=== PATIENT | female | born 1970 | race Caucasian/White ===

== ENCOUNTER 2024-11-08 15:41 | Emergency (ER) | payer OTHER, SELFPAY ==
--- OUTSIDE RECORDS SUMMARY | 2024-11-08 15:44 | XMS_ITS | Continuity of Care Document ---
Author Organization [facility] Address [address] [facility] [address] [place] [address] Assessment No assessment recorded. Plan of Treatment Reminders Order Date Submit Date Provider Last Modified By Organization Details Last Modified Time Details Appointments None record ed. Lab None record ed. Referral None record ed. Procedures None record ed. Surgeries None record ed. Imaging None record ed. Medication Orders None record ed. Patient TargetsNo targets recorded. Patient InstructionsNo instructions recorded. Reason for Referral None Reported. Problems Name Problem SNOMED Code Status Onset Date Resolution Date Notes Provider Name and Address Organization Details Recorded Time Neck pain 30479703 Active 2024 [place] [address] [address], [place], [address], [facility] 18:34:36 Thoracic segmental dysfunction 631503656 Active 2024 [place] [address], [place], [address], [facility] 18:34:36 Lesion of lumbar spine 259117747 Active 2024 [place] [address], [facility] [place], [address], [facility] 18:34:36 Lumbar segmental dysfunction 544492771 Active 2024 [place] [address], [facility] [place], [address], [facility] 18:34:36 Cervical segmental dysfunction 315234816 Active 2024 [facility] Tysonharriett Khan [place] [address], [place], [address], [facility] 18:34:36 Somatic dysfunction of sacral spine 178384538 Active 2024 Grant Chaney [place] [address], [place], [address], [facility] 22:49:33 Low back pain 311090089 Active 2024 Garrick Nieves [place] [address], [place], [address], [facility] 17:22:53 Problem Notes None recorded. Procedures Surgical History Date Name Laterality Status Provider Name and Address Organization Details Recorded Time 53405: Spinal manipulation , 3 to 4 regions completed Garrick Nieves [place] [address], [place], [address], [facility] 11/04/2024 17:22:42 5 59945: Spinal manipulation , 3 to 4 regions completed Grant Chaney DC [address], [place], [address], [facility] 10/06/2024 22:49:06 5 50436: Spinal manipulation , 3 to 4 regions completed Babatunde Tysonharriett Khan DC [address], [place], [address], [facility] 09/05/2024 10:42:02 5 48704: Spinal manipulation , 3 to 4 regions completed Babatunde Living[place]harriett Khan [place] [address], [place], [address], [facility] 08/22/2024 18:34:45 Imaging Results None recorded. Procedure Notes None recorded. Medical Equipment None Reported. Medications Name Sig Start Date Stop Date Status Note LastModified by Organization Details LastModified Time bupropion HCl SR 150 mg tablet,12 hr sustained-relea se TAKE 3 TABLETS BY MOUTH EVERY MORNING active Not Available Not Available No t Available azithromycin 250 mg tablet TAKE 2 TABLETS BY MOUTH FOR 1 DAY THEN TAKE 1 TABLET BY MOUTH DAILY FOR 4 DAYS active Not Available Not Available No t Available spironolactone 25 mg tablet TAKE 8 TABLETS BY MOUTH ONCE DAILY IN THE AM active Not Available Not Available No t Available estradiol 0.0375 mg/24 hr weekly transdermal patch APPLY 1 PACH TO LOWER ABDOMIN WEEKLY FOR 28 DAYS active Not Available Not Available No t Available Vitals None Recorded Social History None recorded. Functional Status None recorded. Mental Status None recorded. Family History Nothing Reported. Medical History No medical history recorded. Gynecological HistoryNo gynecological history recorded. Obstetrics History GPAL:G 0 P 0 0 0 0 Past Encounters Encounter ID Performer Location Encounter Start Date Encounter Closed Date Diagnosis/Indication Diagnosis SNOMED-CT Code Diagnosis ICD10 Code Diagnosis Note [id number] Babatunde Khan DC [facility] [address] [place] [address] 09/03/2024 16:01:54 09/05/2024 23:25:57 Lesion of lumbar spine 234700334 M99.01 Neck pain 74273575 M54.2 Thoracic s egmental dysfunction 039170620 M99.02 Lumbar seg mental dysfunction 348833407 M99.03 Cervical s egmental dysfunction 262646011 M99.01 [id number] Grant Chaney DC [facility] [address] [place] [address] 10/03/2024 15:28:40 10/11/2024 11:11:37 Cervical segmental dysfunction 988374273 M99.01 Thoracic s egmental dysfunction 338975965 M99.02 Neck pain 22300260 M54.2 Somatic dy sfunction of sacral spine 151900205 M99.04 Health Concerns Section Related Observation LastModified by Organization Detai ls LastModified Time None Recorded Concern Status LastModified by Organization Details LastModified Time None Recorded Payers Encounter Date Sequence Insurance Name Policy Number Policy Cruz Covered Member ID Cruz Member ID Guarantor Name 10/03/2024 1 [facility] [place] [id number] [place] Notes Date Note Type Note Provider Name and Address Organization Details Recorded Time 10/03/2024 text/html HPI - Cervical SpineReported bypatient.Location: left Quality:aching Severity:moderate Duration:2 weeks Timing:gradual Alleviating Factors:ice Aggravating Factors:sitting Associated Symptoms:no numbness/tingling Grant Chaney DC [address], [place], [address], [facility] 10/06/2024 22:49:47 OBGyn Episode No OBEpisode recorded.
--- OUTSIDE RECORDS SUMMARY | 2024-11-08 15:44 | XMS_ITS | Data Portability ---
Author Organization [place] [facility], [employer] [facility] Address [address] [facility] [address] [place] [address] Assessment Encounter Date Assessment Date Assessment LastModified by Organization Details LastModified Time 08/22/2024 08/22/2024 ASSESSMENT: Patient is a good candidate for conservative care and the prognosis is for a favorable outcome that achieves the patients' goals. We discussed etiology, activity modifications, home care, and other treatment options. Initially, it is recommended that the patient receive in-office treatment 1 times per week for 8 weeks at which time a re-evaluation will be performed to determine an appropriate change in plan. Initially, treatment will focus on joint manipulation to restore range of motion and reduce pain. We will slowly progress to therapeutic exercises and activities to improve function, strength, and stability may also be used as warranted. If the patient is not responding as expected, more invasive procedures will be discussed along with a referral. All considerations above were discussed with the patient and questions answered to satisfaction. If the patient should have any additional questions, or should the condition evolve or worsen, the patient should not hesitate to contact our office. Not available 08/22/2024 18:34:35 09/03/2024 09/03/2024 ASSESSMENT: Patient is a good candidate for conservative care and the prognosis is for a favorable outcome that achieves the patients' goals. We discussed etiology, activity modifications, home care, and other treatment options. Initially, it is recommended that the patient receive in-office treatment 1 times per week for 8 weeks at which time a re-evaluation will be performed to determine an appropriate change in plan. Initially, treatment will focus on joint manipulation to restore range of motion and reduce pain. We will slowly progress to therapeutic exercises and activities to improve function, strength, and stability may also be used as warranted. If the patient is not responding as expected, more invasive procedures will be discussed along with a referral. All considerations above were discussed with the patient and questions answered to satisfaction. If the patient should have any additional questions, or should the condition evolve or worsen, the patient should not hesitate to contact our office. Not available 09/05/2024 10:42:02 11/04/2024 11/04/2024 ASSESSMENT: Patient is a good candidate for conservative care and the prognosis is for a favorable outcome that achieves the patients' goals. We discussed etiology, activity modifications, home care, and other treatment options. Initially, it is recommended that the patient receive in-office treatment 1 times per week for 8 weeks at which time a re-evaluation will be performed to determine an appropriate change in plan. Initially, treatment will focus on joint manipulation to restore range of motion and reduce pain. We will slowly progress to therapeutic exercises and activities to improve function, strength, and stability may also be used as warranted. If the patient is not responding as expected, more invasive procedures will be discussed along with a referral. All considerations above were discussed with the patient and questions answered to satisfaction. If the patient should have any additional questions, or should the condition evolve or worsen, the patient should not hesitate to contact our office. ecram Not available 11/04/2024 17:22:52 Plan of Treatment Reminders Order Date Submit [...] Address Organization Details Recorded Time Neck pain 26685683 Active 2024 [facility] [place] [address], [place], [address], [facility] 18:34:36 Thoracic segmental dysfunction 452543981 Active 2024 Babatunde [place] [address], [place], [address], [facility] 18:34:36 Lesion of lumbar spine 671402204 Active 2024 Babatunde Khan [place] [address], [place], [address], [facility] 18:34:36 Lumbar segmental dysfunction 233558784 Active 2024 Babatunde Khan DC [address], [place], [address], [facility] 18:34:36 Cervical segmental dysfunction 282226954 Active 2024 Babatunde Khan DC [address], [place], [address], [facility] 18:34:36 Somatic dysfunction of sacral spine 706854006 Active 2024 Grant Chaney DC [address], [place], [address], [facility] 22:49:33 Low back pain 411999891 Active 2024 Garrick Nieves DC [address], [place], [address], [facility] 17:22:53 Problem Notes None recorded. Procedures Surgical History Date Name Laterality Status Provider Name and Address Organization Details Recorded Time 66314: Spinal manipulation , 3 to 4 regions completed Garrick Nieves DC [address], [place], [address], [facility] 11/04/2024 17:22:42 5 10207: Spinal manipulation , 3 to 4 regions completed Grant Chaney DC [address], [place], [address], [facility] 10/06/2024 22:49:06 5 37413: Spinal manipulation , 3 to 4 regions completed Babatunde Khan DC [address], [place], [address], [facility] 09/05/2024 10:42:02 24500: Spinal manipulation , 3 to 4 regions completed Babatunde Khan DC [address], [place], [address], [facility] 08/22/2024 18:34:45 Imaging Results None recorded. Procedure [...] SNOMED-CT Code Diagnosis ICD10 Code Diagnosis Note [id number] Babatunde Khan DC [facility] [address] [place] [address] 08/22/2024 17:02:32 08/22/2024 18:39:16 Lesion of lumbar spine 968093722 M99.01 Neck pain 77244790 M54.2 Thoracic s egmental dysfunction 180606003 M99.02 Lumbar seg mental dysfunction 812801178 M99.03 Cervical s egmental dysfunction 575065232 M99.01 [id number] Babatunde Khan DC [facility] [address] [place] [address] 09/03/2024 16:01:54 09/05/2024 23:25:57 Lesion of lumbar spine 218283425 M99.01 Neck pain 55367225 M54.2 Thoracic s egmental dysfunction 631200211 M99.02 Lumbar seg mental dysfunction 940464788 M99.03 Cervical s egmental dysfunction 407367913 M99.01 [id number] Grant Chaney DC [facility] [address] [place] [address] 10/03/2024 15:28:40 10/11/2024 11:11:37 Cervical segmental dysfunction 181763358 M99.01 Thoracic s egmental dysfunction 732837657 M99.02 Neck pain 05792864 M54.2 Somatic dy sfunction of sacral spine 423916068 M99.04 [id number] Garrick Nieves DC [facility] [address] [place] [address] 11/04/2024 17:03:07 11/04/2024 18:02:42 Cervical segmental dysfunction 120938568 M99.01 Thoracic s egmental dysfunction 167835678 M99.02 Neck pain 34972346 M54.2 Somatic dy sfunction of sacral spine 807161520 M99.04 Lumbar seg mental dysfunction 286756665 M99.03 Low back pain 901330272 M54.50 Health Concerns Section Related Observation LastModified by Organization Detai ls LastModified Time None Recorded Concern Status LastModified by Organization Details LastModified Time None Recorded Advance Directives Directive None Recorded Payers Encounter Date Sequence Insurance Name Policy Number Policy Cruz Covered Member ID Cruz Member ID Guarantor Name 08/22/2024 1 [facility] [place] [id number] [place] 09/03/2024 1 [facility] [place] [id number] [place] 10/03/2024 1 [facility] [place] [id number] Heather [place] 11/04/2024 1 [facility] [id number] Heather Hill Notes Date Note Type Note Provider Name and Address Organization Details Recorded Time 08/22/2024 text/html HPI - Cervical SpineReported bypatient.Location: left Quality:aching Severity:moderate Duration:2 weeks Timing:gradual Alleviating Factors:ice Aggravating Factors:sitting Associated Symptoms:no numbness/tingling Babatunde Khan, ALISHA [address], [place], [address], [facility] 08/22/2024 18:36:37 09/03/2024 text/html HPI - Cervical SpineReported bypatient.Location: left Quality:aching Severity:moderate Duration:2 weeks Timing:gradual Alleviating Factors:ice Aggravating Factors:sitting Associated Symptoms:no numbness/tingling Babatunde Khan, ALISHA [address], [place], [address], [facility] 09/05/2024 10:42:32 10/03/2024 text/html HPI - Cervical SpineReported bypatient.Location: left Quality:aching Severity:moderate Duration:2 weeks Timing:gradual Alleviating Factors:ice Aggravating Factors:sitting Associated Symptoms:no numbness/tingling Grant Chaney, ALISHA [address], [place], [address], [facility] 10/06/2024 22:49:47 11/04/2024 text/html HPI - Cervical SpineReported bypatient.Location: left Quality:aching Severity:moderate Duration:2 weeks Timing:gradual Alleviating Factors:ice Aggravating Factors:sitting Associated Symptoms:no numbness/tinglingHP I - Lumbar SpineReported bypatient.Location: left; With radiation to knee Quality:aching Severity:not changing Timing:morning Aggravating Factors:standing Alleviating Factors:ice Garrick Nieves, ALISHA [address], [place], [address], [facility] 11/04/2024 17:49:11 OBGyn Episode No OBEpisode recorded.
--- OUTSIDE RECORDS SUMMARY | 2024-11-08 15:44 | XMS_ITS | Continuity of Care Document ---
Author Organization [place] [facility] Address [address] [facility] [address] [place] [address] Assessment Encounter Date Assessment Date Assessment LastModified by Organization Details LastModified Time 11/04/2024 11/04/2024 ASSESSMENT: Patient is a good [...] Address Organization Details Recorded Time Neck pain 34536571 Active 2024 Babatunde Khan [place] [address] [facility], [place], [address], [place] [facility] 18:34:36 Thoracic segmental dysfunction 722385518 Active 2024 Babatunde Khan [place] [address] [facility], [place], [address], [place] [facility] 18:34:36 Lesion of lumbar spine 412659629 Active 2024 Babatunde Khan [place] [address] [facility], [place], [address], [facility] 18:34:36 Lumbar segmental dysfunction 382564754 Active 2024 Babatunde Khan [place] [address] [facility], [place], [address], [facility] 18:34:36 Cervical segmental dysfunction 576067701 Active 2024 Babatunde Khan [place] [address] [facility], [place], [address], [facility] 18:34:36 Somatic dysfunction of sacral spine 221245443 Active 2024 Grant Chaney [place] [address] [facility], [place], [address], [facility] 22:49:33 Low back pain 005420842 Active 2024 Garrick Nieves [place] [address] [facility], [place], [address], [facility] 17:22:53 Problem Notes None recorded. Procedures Surgical History Date Name Laterality Status Provider Name and Address Organization Details Recorded Time 84270: Spinal manipulation , 3 to 4 regions completed Garrick Nieves DC [address] [facility], [place], [address], [facility] 11/04/2024 17:22:42 55741: Spinal manipulation , 3 to 4 regions completed Grant Chaney DC [address] [place] [address], [place], [address], [facility] 10/06/2024 22:49:06 5 86711: Spinal manipulation , 3 to 4 regions completed Babatunde Khan [place] [address] [facility], [place], [address], [facility] 09/05/2024 10:42:02 5 11689: Spinal manipulation , 3 to 4 regions completed Babatunde Khan [place] [address] [facility], [place], [address], [facility] 08/22/2024 18:34:45 Imaging Results None recorded. Procedure [...] SNOMED-CT Code Diagnosis ICD10 Code Diagnosis Note [id number] Garrick Nieves DC [facility] [address] [facility] [facility] [place] [address] 11/04/2024 17:03:07 11/04/2024 18:02:42 Cervical segmental dysfunction 636712592 M99.01 Thoracic s egmental dysfunction 191376753 M99.02 Neck pain 84694125 M54.2 Somatic dy sfunction of sacral spine 028381963 M99.04 Lumbar seg mental dysfunction 585339880 M99.03 Low back pain 560770297 M54.50 Health Concerns Section Related Observation LastModified by Organization Detai ls LastModified Time None Recorded Concern Status LastModified by Organization Details LastModified Time None Recorded Payers Encounter Date Sequence Insurance Name Policy Number Policy Cruz Covered Member ID Cruz Member ID Guarantor Name 11/04/2024 1 [facility] [place] [id number] [place] Notes Date Note Type Note Provider Name and Address Organization Details Recorded Time 11/04/2024 text/html HPI - Cervical SpineReported bypatient.Location: left Quality:aching Severity:moderate Duration:2 weeks Timing:gradual Alleviating Factors:ice Aggravating Factors:sitting Associated Symptoms:no numbness/tinglingHP I - Lumbar SpineReported bypatient.Location: left; With radiation to knee Quality:aching Severity:not changing Timing:morning Aggravating Factors:standing Alleviating Factors:ice Garrick Nieves [place] [address] [facility], [place], [address], [facility] 11/04/2024 17:49:11 OBGyn Episode No OBEpisode recorded.
--- OUTSIDE RECORDS SUMMARY | 2024-11-08 15:44 | XMS_ITS | Clinical Summary ---
Author Organization [facility] Address [address] [place] [address] Care Team Providers Care Search Engine Marketing Manager Name Role Phone Paulette Mcdonough DO Unavailable [phone] Iain Zamora MD Unavailable [phone] Flower Yepez DO Primary Care Provider [phone] Allergies Active Allergy Reactions Criticality Noted Date Comments Cats (Fur, Dander, Saliva) Ciprofloxacin Hives 02/25/2009 Canine Protein Containing Products House Dust Butoconazole Edema Gluten Mental Status Change 06/04/2020 Mold Other - Describe In Comment Field 05/11/2020 Body aches, congestion [place] Ragweed Medications CLARITIN-D 12 HOUR tablet TAKE ONE TABLET BY MOUTH TWICE DAILY 180 tablet 1 02/29/20 11 Active Additional Information Patient taking differently:1 tablet. OralQ AM, Reported on 01/05/2023 medication order composerIndica tions:Menopaus al state Progestrone 300 mg and Estrogen 0.5 mg daily 0 12/20/19 14 Active vitamin E acetate, bulk, 740 unit/gram powd 2 tablets. by Not Applicable route. Active estradiol 0.0375 mg/24 hr (CLIMARA) 0.0375 mg/24 hr patch APPLY 1 PATCH TO LOWER ABDOMEN WEEKLY 02/04/20 23 Active Thyroid, Pork, Bulk, 100 % MCFP powdIndication s:Hypothyroidi sm (acquired) As directed 115 mcg. 0 06/01/20 23 Active traZODone 300 mg tabletIndicati ons:Major depressive disorder with single episode, in partial remission Take 1 Tablet (300 mg) by mouth at bedtime. 90 Tablet 1 07/24/19 25 Active hydrOXYzine HCL (ATARAX) 25 mg tabletIndicati ons:Anxiety Take 1 Tablet (25 mg) by mouth every 6 hours if needed for Anxiety. 25 Tablet 08/02/19 25 Active torsemide (DEMADEX) 20 mg tabletIndicati ons:Localized edema TAKE 1 TABLET(20 MG) BY MOUTH EVERY DAY NEEDED FOR SWELLING 90 Tablet 09/17/19 25 Active acyclovir 400 mg tabletIndicati ons:Genital herpes simplex, unspecified site TAKE 1 TABLET(400 MG) BY MOUTH TWICE DAILY 180 Tablet 2 09/27/19 25 Active fluconazole 150 mg tabletIndicati ons:Antibiotic -induced yeast infection Take 1 Tablet (150 mg) by mouth every 72 hours. 2 Tablet 10/01/19 25 Active buPROPion 150 mg Sustained-Rele ase tabletIndicati ons:Major depressive disorder with single episode, in partial remission Take 3 Tablets (450 mg) by mouth once daily in the morning. TAKE 3 TABLETS BY MOUTH DAILY 270 Tablet 3 10/12/19 25 Active cromolyn 100 mg/5 mL oral solutionIndica tions:Mast cell activation (HC) Take 5 mL (100 mg) by mouth four times daily before meals and at bedtime. 600 mL 2 10/12/19 25 025 Active cyanocobalamin 1,000 mcg/mL injectionIndic ations:B12 deficiency ADMINISTER 1 ML(1000 MCG) UNDER THE SKIN 1 TIME FOR 1 DOSE 1 mL 10/15/19 25 Active spironolactone 25 mg tabletIndicati ons:Polycystic ovaries,Hair loss Take 8 tablets by mouth and divide doses through day 720 Tablet 1 10/26/19 25 Active buPROPion (WELLBUTRIN SR) 150 mg Sustained-Rele ase tabletIndicati ons:Major depressive disorder with single episode, in partial remission Take 3 Tablets (450 mg) by mouth every morning. TAKE 2 AND 1/2 TABLETS BY MOUTH DAILY 270 Tablet 3 10/24/19 24 025 Discontinued(R eorder (E-cancel not sent)) cyanocobalamin (VITAMIN B12) 1,000 mcg/mL injection 11/09/19 24 025 Discontinued spironolactone (ALDACTONE) 25 mg tabletIndicati ons:Polycystic ovaries,Hair loss Take 8 tablets by mouth and divide doses through day 540 Tablet 3 04/09/20 24 025 Discontinued Active Problems Problem Noted Date Diagnosed Date Cervical cancer screening 10/30/2024 Overview (10/30/2024): 10/2024 NIL/HPV negative Plan: HPV-based testing due 10/2029 Deviated septum 09/06/2021 Posttraumatic stress disorder 08/12/2020 Surgical menopause 07/02/2019 Hormone replacement therapy (HRT) 05/18/2019 Lyme disease 02/26/2018 Overview (02/26/2018): Dx: 2012 by SILVIA Rogers CFS (chronic fatigue syndrome) 02/26/2018 Overview (02/26/2018): Dx: 2012 by SILVIA Rogers B12 deficiency 11/29/2017 Vitamin D deficiency 07/19/2017 PMS (premenstrual syndrome) 07/19/2017 Polycystic ovaries 07/19/2017 Hypothyroidism (acquired) 12/22/2016 Basal cell carcinoma 09/04/2015 Overview (09/04/2015): 08/31/15 - back - clean margins Hx of bilateral oophorectomy 08/06/2015 Fibromyalgia 03/11/2014 Raynaud's syndrome 10/26/2011 Hypercalcemia 12/23/2009 Overview (12/23/2009): Possibly due to over supplementation Endometriosis, site unspecified 12/14/2009 Episode of recurrent major depressive disorder 0 01/07/2009 Genital herpes, unspecified 06/27/2007 Other acne Edema Irritable bowel syndrome ONYCHOMYCOSIS INSOMNIA Encounters Date Type Department Care Team Description 11/08/2024 Nurse Triage [facility] [address] [facility] [place] [address] Flower Yepez DO Pain 10/25/2024 Telephone [facility] [address] [facility] [place] [address] Flower Yepez DO Prior Authorization (buPROPion 150 mg Sustained-Release tablet Approved 09/25/2024-10/25/2025) 10/23/2024 Refill [facility] [address] [facility] [place] [address] Flower Yepez DO Refill Request (Bupropion, Spironolactone) 10/11/2024 12:50 PM CDT Office Visit [facility] [address] [place] [address] Flower Yepez DO Physical (54 year old - due for pap ) 10/11/2024 Refill [facility] [address] [place] [address] Flower Yepez DO Refill Request (Cyanocobalamin) 10/11/2024 Travel 10/07/2024 Travel 10/04/2024 10:15 AM CDT Orders Only [facility] [address] [place] [address] Lab 10/04/2024 Travel 10/01/2024 Travel 09/29/2024 12:35 PM CDT Telemedicine [facility] [address] [place] [phone] Scotty Lovelace MD Sinus Infection 09/29/2024 Nurse Triage [facility] [address] [place] [address] Flower Yepez DO Sinus Problem 09/24/2024 Refill [facility] [address] [place] [address] Flower Yepez DO Refill Request (Acyclovir) 09/16/2024 Telephone [facility] [address] [place] [address] Flower Yepez DO Questions (Patient has question. Is requesting to speak with provider or nurse. ) 09/13/2024 Refill [facility] [address] [place] [address] Flower Yepez DO Refill Request (Torsemide) 08/22/2024 3:00 PM HANDICAPPER HARNESS RACING Orders Only [facility] [address] [place] [address] Lab, [facility] 08/22/2024 Travel from Last 3 Months Immunizations Immunization Administration Dates Next Due AMB Influenza, IIV3 (Age >=3 years) Preserve Free (Flu Clinic Only) 05/28/2008 AMB Influenza, IIV3 (Age >=3 years)(Flu Clinic Only) 05/28/2008 AMB Influenza, IIV4 PF (=>6 mos Flulaval,Fluzone Fluarix)(Flu Clinic Only) 05/14/2014 COVID-19 vaccine ([facility] NTC9 Media 30mcg/0.3mL) PF, MDV 03/04/2021,02/05/2021 INFLUENZA, IIV3 PF (AGE >= 6 MO) 04/13/2011 Influenza A (H1N1), Inactiva fco (Age >=3 Years) 07/01/2009 Influenza, IIV3 (Age >=3 years) 05/02/2012,04/13,05/11/2007 Td (Age >=7 Years) 02/24/2023,08/19/2003, 004 Tdap 05/02/2012 Zoster (Shingrix-RZV, recombinant) 02/24/2023, Family History Medical History Relation Name Comments Alcohol/Drug Brother 3 alcoholic Heart Disease Brother 4 AVM in brain-s anabel brother Arthritis Father Osteoarthrits Hyperlipidemia Father b 1938 Psychiatric illness Father depressi on Arthritis Mother RA - ankylosing spondilitis Dementia Mother Diabetes Mother b 1938 Heart Disease Mother [place] at 70 yo Hypertension Mother Other Mother diverticulitis Stroke Mother x2 minor Cancer-breast Other Paternal Cousin x2 Osteoporosis Paternal Grandmother Other Sister 2 diverticulitis Cancer-ovarian No Family History Relation Name Status Comments Brother 1 Alive Brother 2 Alive Brother 3 Brother 4 Father Alive Mother Alive Other Paternal Cousin Paternal Grandmother Sister 1 Alive Sister 2 Social History Tobacco Use Types Packs/Day Years Used Date Smoking Tobacco: Never Smokeless Tobacco: Never Tobacco Cessation:Counseling Given: Yes Alcohol Use Standard Drinks/Week Comments Not Currently 0.8 (1 standard drink = 0.6 oz p ure alcohol) PHQ-2 Answer Date Recorded PHQ-2 TOTAL SCORE 3 10/11/2024 Social Connections Answer Date Recorded Do you often feel lonely or isolated from those around you? 0 07/08/2024 Financial Resource Strain Answer Date R ecorded Difficulty of Paying Living Expenses 3 07/08/2024 Difficulty of Paying Living Expenses Not on file 07/08/2024 Food Insecurity Answer Date Recorded Do you worry your food will run out before you are able to buy more? 1 07/08/2024 Transportation Needs Answer Date Record ed Does lack of transportation keep you from medica l appointments? 1 07/08/2024 Does lack of transportation keep you from work, meetings or getting things that you need? 1 07/08/2024 Housing Stability Answer Date Recorded What is your housing situation today? 1 07/08/2024 Utilities Answer Date Recorded Do you have trouble paying f or utilities (for example, heat, electricity, water, phone)? 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 Not on file Not on file Obstetrics History Para Term AB IAB SAB Ectopic Multiple Livin g Live Births 3 2 2 0 1 0 1 0 0 2 Date Outcome GA Total Labor Labor/2nd/3rd Weight Sex Type Anes PTL Kaylynn A1 A5 Name Clin SAB Term Term Comments hx infertility Last Filed Vital Signs Vital Sign Reading Time Taken Comments Blood Pressure 118/81 10/11/2024 1:13 PM CDT Pulse 66 10/11/2024 1:13 PM CDT Temperature 35.9 C (96.6 F) 06/04/2020 3:57 PM HANDICAPPER HARNESS [employer]ACING Respiratory Rate 16 01/05/2023 3:55 PM CDT Oxygen Saturation 100% 10/11/2024 1:13 PM CDT Inhaled Oxygen Concentration - - Weight 58 kg (127 lb 12.8 oz) 10/11/2024 1:13 PM CDT Height 166.6 cm (5' 5.59) 10/11/2024 1:13 PM CD T Body Mass Index 20.89 10/11/2024 1:13 PM CDT Plan of Treatment Upcoming Encounters Date Type Department Care Team (Late st Contact Info) Description 11/26/2024 11:40 AM CDT Ancillary Procedure [facility] [address] [place] [address] Health Maintenance Due Date Last Done Comments Fecal testing sDNA-FIT ([place] guard) for age 45-75 2015 Pneumococcal series for age 50+ (1 of 1 - PCV) 2020 COVID-19 vaccine series (3 - Pfizer risk series) 04/01/2021 03/04/2021, 02/05/2021 Mammogram for age 45-75 11/06/2024 11/07/19, 10/24/2023, 11/26/2021, Additional history exists Influenza Vaccine (Season Ended) 2025 05/14/2014, 05/02/2012, 04/13/2011, Additional history exists BMI (ht and wt on same day) for age 18+ 10/11/2025 10/11/2024, 02/24/2023, 02/23/2022, Additional history exists Depression screening for age 12+ 10/11/2025 10/11/2024, 10/11/2024, 11/01/2023, Additional history exists Lipids for age 45-75 10/11/2029 10/11/2024, 02/24/2023, 04/04/2022, Additional history exists Pap test for age 21-65 10/11/2029 , 10/11/2024, 02/09/2021, Additional history exists Tetanus booster 02/24/2033 02/24/2023, 04/04, 08/19/2003, Additional history exists Tdap Completed 05/02/2012 HIV for age 15-65 Completed 03/11/2014 Hepatitis C screening for ag e 18-79 Completed 03/11/2014 Zoster (shingles) series for age 50+ Completed 02/24/2023, 11/26/2021 Procedures Procedure Name Priority Date/Time Associated Diagnosis Comments BASIC METABOLIC PANEL Routine 10/11/2024 2:24 PM CDT Annual physical exam LIPID PANEL W REFLEX MEASURED LDL Routine 10/11/2024 2:24 PM CDT Annual physical exam MERCERIZING RANGE CONTROLLER THIN PREP PAP SCREEN IMAGED Routine 10/11/2024 2:04 PM CDT Pap smear for cervical cancer screening HPV HIGH RISK Routine 10/11/2024 2:04 PM CDT Pap smear for cervical cancer screening BASIC METABOLIC PANEL Routine 08/22/2024 3:14 PM HANDICAPPER HARNESS RACING Medication management TSH WITH REFLEX Routine 08/22/2024 3:14 PM HANDICAPPER HARNESS RACING Hypothyroidism (acquired) XR MAMMO ANN UNI ADDL VIEWS LEFT ELSA 11/07/2023 2:24 PM CDT Abnormal mammogram ANTI HIV 1/2 Routine 03/11/2014 2:32 PM CDT Fibromyalgia ANTI HCV Routine 03/11/2014 2:32 PM CDT Fibromyalgia from Last 3 Months or Most Recently Relevant to Health Maintenance Results * (ABNORMAL) LIPID PANEL W REFLEX MEASURED LDL (10/11/2024 2:24 PM CDT) CHOLESTEROL, TOTAL 205(H) <200 mg/dL [facility] HDL CHOLESTEROL 55 > OR = 50 mg/dL [facility] TRIGLYCERIDES 110 <150 mg/dL [facility] LDL-CHOLESTEROL 128(H) mg/dL (calc) [facility] Comment: Reference range: <100 Desirable range <100 mg/dL for primary prevention; <70 mg/dL for patients with CHD or diabetic patients with > or = 2 CHD risk factors. LDL-C is now calculated using the Salma calculation, which is a validated novel method providing better accuracy than the Friedewald equation in the estimation of LDL-C. Hipolito GRIDER et al. MIKIE. 2013;310(19): 1494-0681 (http://education.[employer].Soma/faq/LZK304) CHOL/HDLC RATIO 3.7 <5.0 (calc) [facility] NON HDL CHOLESTEROL 150(H) <130 mg/dL (calc) [facility] Comment: For patients with diabetes plus 1 major ASCVD risk factor, treating to a non-HDL-C goal of <100 mg/dL (LDL-C of <70 mg/dL) is considered a therapeutic option. Blood BLOOD SPECIMEN / Unknown 10/11/2024 2:24 PM CDT 10/11/2024 2:24 PM CDT us Flower Joséronak DO CHEMISTRY Final Result [facility] [address] [place] [address], [facility] [address] [place] [address] * (ABNORMAL) BASIC METABOLIC PANEL (10/11/2024 2:24 PM CDT) Only the most recent of2 resultswithin the time period is included. [facility] GLUCOSE 91 65 - 99 mg/dL [facility] Comment: Fasting reference interval UREA NITROGEN (BUN) 13 7 - 25 mg/dL [facility] CREATININE 1.04(H) 0.50 - 1.03 mg/dL [facility] EGFR 64 > OR = 60 mL/min/1.7 3m2 [facility] BUN/CREATININE RATIO 13 6 - 22 (calc) [facility] SODIUM 136 135 - 146 mmol/L [facility] POTASSIUM 3.6 3.5 - 5.3 mmol/L [facility] CHLORIDE 96(L) 98 - 110 mmol/L [facility] CARBON DIOXIDE 29 20 - 32 mmol/L [facility] ELECTROLYTE BALANCE 11 7 - 17 mmol/L (calc) [facility] CALCIUM 10.8(H) 8.6 - 10.4 mg/dL [facility] Blood BLOOD SPECIMEN / Unknown 10/11/2024 2:24 PM CDT 10/11/2024 2:24 PM CDT us Flower Yepez DO CHEMISTRY Final Result [facility] [address] [place] [address], [facility] [address] [place] [address] * MERCERIZING RANGE CONTROLLER THIN PREP PAP SCREEN IMAGED (10/11/2024 2:04 PM CDT) Case Report Gynecologic Cytology Report Case: [id number] Authorizing Provider: Flower Yepez DO Collected: 10/11/2024 1404 Ordering Location: [facility] Received: 10/11/2024 1404 Clinic First Screen: Maikel Gallego Rescreen: Judith Pittman Specimen: MERCERIZING RANGE CONTROLLER ThinPrep Vial Screening, Cervical 10/30/2024 1:27 PM CDT [facility] INTERPRETATION/ RESULT NEGATIVE FOR INTRAEPITHELIAL LESION OR MALIGNANCY (NIL) (none) 10/30/2024 1:27 PM CDT [facility] ENTRAL LABORATORY at 1327 CDT SPECIMEN ADEQUACY Satisfactory for evaluation No endocervical component seen 10/30/2024 1:27 PM CDT [facility] HPV REQUEST HPV and PAP 10/30/2024 1:27 PM CDT [facility] Date of LMP unknown 10/30/2024 1:27 PM CDT [facility] Last Pap Date 02/09/21 10/30/2024 1:27 PM CDT [facility] Last Pap Result NIL 1:27 PM CDT [facility] Abnormal Pap or [place] Bx in last 5 years No 10/30/2024 1:27 PM CDT [facility] Menstrual Status Postmenopausal 10/30/2024 1:27 PM CDT [facility] [place] Bx Done Today No 10/30/2024 1:27 PM CDT [facility] Additional Information None given 10/30/2024 1:27 PM CDT [facility] Comment: Cytology is screened at [facility] - [address], [place] [address] and [facility] - [address], [place] [address] and [facility] - [address] [place] [address] Interpreted at [facility] - [address], [place] [address] Automated Review Successful 10/30/2024 1:27 PM CDT [facility] Comment:Specimen processed s uccessfully by automated mica patcher device, ThinPrep Imaging System, [employer] ANCILLARY TESTING MERCERIZING RANGE CONTROLLER HPV Ordered, Please see separate report 10/30/2024 1:27 PM CDT [facility] Note The pap test is a screening technique, not a diagnostic procedure. It is used primarily to screen for squamous cancers and precursor lesions. Published studies have shown that it is subject to both false negative and false positive results. The pap test should not be used as the sole means to diagnose or exclude pre-malignant and malignant lesions. 10/30/2024 1:27 PM CDT [facility] Other (Cervical) Non-Blood / Unknown 10/11/2024 2:04 PM CDT 10/11/2024 2:04 PM CDT us Toshiai Lucho DO PATHOLOGY/CYTOLOGY Final Result [facility] [address] [place] [address], [place] * HPV HIGH RISK (10/11/2024 2:04 PM CDT) TYPE 16 Negative Negative 10/16/2024 3:20 PM CDT [facility] TYPE 18 Negative Negative 10/16/2024 3:20 PM CDT [facility] OTHER HIGH RISK TYPES Negative Negative 10/16/2024 3:20 PM CDT [facility] Other (Cervical) Non-Blood / Unknown 10/11/2024 2:04 PM CDT 10/14/2024 10:27 AM CDT Narrative [facility] - 10/16/2024 3:20 PM CDT HPV types 16, 18, 31, 33, 35, 39, 45, 51, 52, 56, 58, 59, 66 and 68 DNA were undetectable or below the pre-set threshold. Methodology: Darrin Valdo 4800 HPV Test Toshia Lucho DO MICROBIOLOGY Final Result [facility] [address] [place] [address], * TSH WITH REFLEX (08/22/2024 3:14 PM HANDICAPPER HARNESS RACING) TSH W/REFLEX TO FT4 1.55 mIU/L [facility] Comment: Reference Range > or = 20 Years 0.40-4.50 Ranges First trimester 0.26-2.66 Second trimester 0.55-2.73 Third trimester 0.43-2.91 Blood BLOOD SPECIMEN / Unknown 08/22/2024 3:14 PM HANDICAPPER HARNESS RACING 08/22/2024 3:14 PM HANDICAPPER HARNESS RACING Flower Yepez DO CHEMISTRY Final Result [facility] [address] [place] [address], [facility] [address] [place] [address] * XR MAMMO ANN UNI ADDL VIEWS LEFT (11/07/2023 2:24 PM CDT) Anatomical Region Laterality Modality BREASTS, Breast Left Mammography 11/07/2023 2:38 PM CDT Impressions 11/07/2023 3:45 PM CDT Simple cyst LEFT breast 3 o'clock 6 cm from the nipple measuring 8 x 3 x 6 millimeters. No evidence of malignancy. RECOMMENDATIONS: Annual BILATERAL screening mammography. Results and recommendations were discussed with the patient at the time of the exam. BI-RADS Category 2: Benign Dictated by: Toñito Ugarte MD @11/07/2023 2:38:19 PM / CRL:alec PATIENTS: You will also receive a letter with your examination results in an easy to read format. If you have questions about your results, please contact your referring provider. Narrative 11/07/2023 3:45 PM CDT For Patients: As a result of the Century Cures Act, medical imaging exams and procedure reports are released immediately into your electronic medical record. You may view this report before your referring provider. If you have questions, please contact your health care provider. ADDITIONAL VIEWS LEFT DIGITAL MAMMOGRAM USING TOMOSYNTHESIS AND COMPUTER-AIDED DETECTION, 11/07/2023 LEFT BREAST ULTRASOUND, 11/07/2023 CLINICAL HISTORY: LEFT breast mass/asymmetry. COMPARISON: 10/24/2023. TECHNIQUE: Digital LEFT mammogram in two projections. Tomosynthesis and CAD utilized. Real-time ultrasound imaging of LEFT breast with imaging documentation. BREAST COMPOSITION: There are areas of scattered fibroglandular density. FINDINGS: 3D spot compression CC/MLO LEFT breast mammogram images submitted. Persistent nodular density lateral LEFT breast without architectural distortion. No suspicious calcifications. Targeted LEFT breast ultrasound performed at 3 o'clock 6 cm from the nipple. In this location, there is a simple circumscribed anechoic cyst measuring 8 x 3 x 6 millimeters. us Adei Shaqra DO MAMMO Final Result * ANTI HCV (03/11/2014 2:32 PM CDT) HEPATITIS C ANTIBODY Non-Reacti ve Non-Reacti ve 03/11/2014 6:58 PM CDT [facility] Blood specimen (specimen) BLOOD SPECIMEN / Unknown Venipuncture / Unknown 03/11/2014 2:32 PM CDT 03/11/2014 2:33 PM CDT Narrative [facility] - 03/11/2014 6:58 PM CDT Antibodies to HCV not detected; does not exclude the possibility of exposure to HCV. us Iain Zamora MD SEND OUTS Final Resul t [facility] [address] [place] [address], * ANTI HIV 1/2 (03/11/2014 2:32 PM CDT) HIV-1/HIV-2 ANTIBODY Non-Reacti ve Non-Reacti ve 03/11/2014 7:01 PM CDT [facility] Blood specimen (specimen) BLOOD SPECIMEN / Unknown Venipuncture / Unknown 03/11/2014 2:32 PM CDT 03/11/2014 2:33 PM CDT Narrative [facility] - 03/11/2014 7:01 PM CDT HIV-1 p24 and HIV-1/HIV-2 Ab not detected us Iain Zamora MD SEND OUTS Final Resul t Performing Organization Address City/[facility]/ZIP Co de Phone Number [facility] [address] [place] [address], from Last 3 Months or Most Recently Relevant to Health Maintenance Insurance [facility] [address] [place] [address] [employer] Care Teams Search Engine Marketing Manager Relationship Specialty Start Date End Date Flower Yepez DO [address] [place] [address] PCP - General Family Practice 01/31/23 Paulette Mcdonough DO Family Practice Family Practice 10/26/11 Iain Zamora MD [address] [facility] [address] [place] [address] Rheumatology Rheumatology 03/11/14
[2024-11-08 15:57] VITALS: BP 142/86; PULSE 85; RESP 16; TEMP 36.9; O2SAT 99; BMI 21.5
--- NOTE | 2024-11-08 16:53 | ED_ITS ---
HPI - General Adult General Chief complaint: Allergic Reaction Stated complaint: severe side effects to medication Time Seen by Provider: 11/08/24 16:22 History of Present Illness HPI narrative: This 54-year-old female comes in reporting some generalized burning sensation on her skin after taking terbinafine. She states that she has recurrent Bessy infections in normally has taken Diflucan. Her provider prescribed terbinafine and she took this medicine and within less than an hour she began to have these adverse effects. She also reports gaining about 5 lb over the past couple days. She states that she typically takes torsemide as needed and has resumed taking this but feels that it may not be working well enough. She does not report any orthopnea. She does not have a history of congestive heart failure or renal insufficiency. Related Data Home Medications ?Medication ?Instructions ?Recorded ?Confirmed acyclovir 400 mg tablet 400 mg PO BID 11/08/24 11/08/24 bupropion HCl 150 mg tablet,12 hr mg PO 11/08/24 sustained-release cromolyn 100 mg/5 mL oral mg 11/08/24 concentrate estradiol 0.0375 mg/24 hr weekly 1 patch topical 11/08/24 transdermal patch spironolactone 25 mg tablet 200 mg PO QAM 11/08/24 11/08/24 torsemide 20 mg tablet 20 mg PO DAILY 11/08/24 11/08/24 trazodone 300 mg tablet 300 mg PO QPM 11/08/24 11/08/24 Previous Rx's ?Medication ?Instructions ?Recorded fluconazole 100 mg tablet 100 mg PO DAILY #10 tabs 11/08/24 (Diflucan) furosemide 20 mg tablet (Lasix) 20 mg PO DAILY #14 tabs 11/08/24 hydrochlorothiazide 12.5 mg capsule 12.5 mg PO DAILY #20 caps 11/08/24 Allergies Allergy/AdvReac Type Severity Reaction Status Date / Time butoconazole Allergy Unknown Verified 11/08/24 16:04 ciprofloxacin (From Cipro) Allergy Unknown Verified 11/08/24 16:04 gluten Allergy Unknown Verified 11/08/24 16:04 mold Allergy Unknown Verified 11/08/24 16:04 terbinafine Allergy Unknown Verified 11/08/24 16:04 Review of Systems Status of ROS: Reports: 10 or more systems reviewed and unremarkable except as noted in History and below Narrative: Constitutional: No fevers. Eyes: No discharge. No vision changes. HENT: No congestion, no sore throat, no ear pain. Cardiovascular: No chest pain, no palpitations. Respiratory: No shortness of breath, no wheezes, no cough. Gastrointestinal: No abdominal pain, no vomiting, no diarrhea. Genitourinary: No dysuria, no hematuria. Musculoskeletal: Normal range of motion. Skin: No rashes, no pruritis. Generalized burning sensation that she attributes to adverse effect from taking terbinafine. Neurological: No dizziness, weakness, sensory change, speech change. Endo/Heme/Allergies: No bruising or bleeding. No polydipsia. Pysch: no suicidality, no anxiety, no insomnia. All other systems reviewed and are negative. Exam Narrative: Exam Narrative: Constitutional: Well-developed, well-nourished, no acute distress. HEENT: Normocephalic, atraumatic. Neck: Normal range of motion. Nontender. Supple. Heart: Intact distal pulses. Lungs: No chest discomfort. No wheezes, rhonchi, or rales. Abdomen: Nontender. Back: Normal range of motion. Extremities: Normal range of motion. No injury. No pedal edema. Skin: Intact. No rash. Warm. No erythema or pallor. Neurologic: No altered sensation. No weakness. Alert and oriented. Psychiatric: No suicidality. No anxiety or depression. No insomnia. Nursing notes and vitals signs are reviewed. Const: Vital Signs, click to edit/add: Vital Signs - 24 hr 11/08/24 15:57 Temperature 98.5 F Pulse Rate [Pulse Oximeter] 85 Respiratory Rate 16 Blood Pressure [Ri ght Upper Arm] 142/86 H Pulse Oximetry 99 Oxygen Delivery Me thod Room Air Course Vital Signs Vital signs: Initial Vital Signs Temperature 98.5 F 11/08/24 15:57 Temperature Source Temporal Artery Scan 11/08/24 15:57 Pulse Rate 85 11/08/24 15:57 Respiratory Rate 16 11/08/24 15:57 Blood Pressure 142/86 H 11/08/24 15:57 Blood Pressure Mean 104 11/08/24 15:57 Blood Pressure Position Sitting 11/08/24 15:57 Pulse Oximetry 99 11/08/24 15:57 Oxygen Delivery Method Room Air 11/08/24 15:57 Vital Signs Temperature 98.5 F 11/08/24 15:57 Pulse Rate 85 11/08/24 15:57 Respiratory Rate 16 11/08/24 15:57 Blood Pressure 142/86 H 11/08/24 15:57 Pulse Oximetry 99 11/08/24 15:57 Oxygen Delivery Method Room Air 11/08/24 15:57 Temperature 98.5 F 11/08/24 15:57 Pulse Rate 85 11/08/24 15:57 Respiratory Rate 16 11/08/24 15:57 Blood Pressure 142/86 H 11/08/24 15:57 Pulse Oximetry 99 11/08/24 15:57 Oxygen Delivery Method Room Air 11/08/24 15:57 Medical Decision Making MDM Narrative Medical decision making narrative: This person arrives here with normal vital signs and reports some adverse effects to taking terbinafine. She reports a burning sensation that has dissipated since discontinuing this medicine. She is requesting Diflucan instead. She also reports some weight gain from fluid retention and wonders if there is a different treatment the size torsemide which she wonders if it is not working so well currently. This patient does not show any external sign of fluid retention or heart failure. She states that she has been taking a diuretic for most of 20 or 30 years as needed. I did provide a prescription for Diflucan and also low doses of Lasix which she can try instead of the torsemide and low-dose of hydrochlorothiazide which may serve to potentiate the diuretic benefit if needed. I advised her to follow-up with her primary physician. Discharge Plan Discharge Clinical Impression: Adverse reaction to drug Patient Disposition: Home, Self-Care Condition: Stable Additional Instructions: Take Diflucan as needed and directed. Okay to substitute torsemide with Lasix and if needed augment either of those medicines with hydrochlorothiazide as needed for diuresis. Follow up with MD return if worsening. Prescriptions: New fluconazole [Diflucan] 100 mg tablet 100 mg PO DAILY Qty: 10 1RF furosemide [Lasix] 20 mg tablet 20 mg PO DAILY Qty: 14 2RF hydrochlorothiazide 12.5 mg capsule 12.5 mg PO DAILY Qty: 20 0RF No Action cromolyn 100 mg/5 mL concentrate Patient Comments: [NO ORIGINAL SIG] bupropion HCl 150 mg tablet sustained-release 12 hr PO torsemide 20 mg tablet 20 mg PO DAILY acyclovir 400 mg tablet 400 mg PO BID spironolactone 25 mg tablet 200 mg PO QAM trazodone 300 mg tablet 300 mg PO QPM estradiol 0.0375 mg/24 hr patch weekly 1 patch topical Follow Up/Referrals: Juan Diego Rios MD [Primary Care Provider] - Stand Alone Forms: [employer] Info Instructions
--- OUTSIDE RECORDS SUMMARY | 2024-11-08 17:07 | XMS_ITS | Clinical Summary ---
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 Name Role Phone Paulette Mcdonough DO Unavailable [phone] Iain Zamora MD Unavailable [phone] Flower Yepez DO Primary Care Provider [phone] Allergies Active Allergy Reactions Criticality Noted Date Comments Cats (Fur, Dander, Saliva) Ciprofloxacin Hives 02/25/2009 Canine Protein Containing Products House Dust Butoconazole Edema Gluten Mental Status Change 06/04/2020 Mold Other - Describe In Comment Field 05/11/2020 Body aches, congestion [place] Ragweed Medications CLARITIN-D 12 HOUR tablet TAKE [...] 23 Active Thyroid, Pork, Bulk, 100 % NURSING HOME powdIndication s:Hypothyroidi sm (acquired) As directed 115 [...] Department Care Team Description 11/08/2024 Nurse Triage [facility] [address] [facility] [place] [address] Flower Yepez DO Pain 10/25/2024 Telephone [facility] [address] [facility] [address] Flower Yepez DO Prior Authorization (buPROPion 150 mg Sustained-Release tablet Approved 09/25/2024-10/25/2025) 10/23/2024 Refill [facility] [address] [place] [address] Flower Yepez DO Refill Request (Bupropion, Spironolactone) 10/11/2024 12:50 PM CDT Office Visit [facility] [address] [place] [address] Flower Yepez DO Physical (54 year old - due for pap ) 10/11/2024 Refill [facility] [address] [place] [address] Flower Yepez DO Refill Request (Cyanocobalamin) 10/11/2024 Travel 10/07/2024 Travel 10/04/2024 10:15 AM CDT Orders Only [facility] [address] [place] [address] Lab 10/04/2024 Travel 10/01/2024 Travel 09/29/2024 12:35 PM CDT Telemedicine [facility] [address] [place] [phone] Scotty Lovelace MD Sinus Infection 09/29/2024 Nurse Triage [facility] [address] [place] [address] Flower Yepez DO Sinus Problem 09/24/2024 Refill [facility] [address] [place] [address] Flower Yepez DO Refill Request (Acyclovir) 09/16/2024 Telephone [facility] [address] [place] [address] Flower Yepez DO Questions (Patient has question. Is requesting to speak with provider or nurse. ) 09/13/2024 Refill [facility] [address] [place] [address] Flower Yepez DO Refill Request (Torsemide) 08/22/2024 3:00 PM ORGAN TUNER Orders Only [facility] [address] [place] [address] Lab, [place] [facility] 08/22/2024 Travel from Last 3 Months Immunizations Immunization Administration Dates Next Due AMB Influenza, IIV3 (Age >=3 years) Preserve Free (Flu Clinic Only) 05/28/2008 AMB Influenza, IIV3 (Age >=3 years)(Flu Clinic Only) 05/28/2008 AMB Influenza, IIV4 PF (=>6 mos Flulaval,Fluzone Fluarix)(Flu Clinic Only) 05/14/2014 COVID-19 vaccine ([employer] 30mcg/0.3mL) PF, MDV 03/04/2021,02/05/2021 INFLUENZA, IIV3 PF [...] Diabetes Mother b 1938 Heart Disease Mother [place] at 70 yo Hypertension Mother Other Mother [...] PM CDT Legal Sex Female 6:24 AM ORGAN TUNER Gender Identity Female 02/02/2021 1:23 PM CDT [...] 35.9 C (96.6 F) 06/04/2020 3:57 PM ORGAN TUNER Respiratory Rate 16 01/05/2023 3:55 PM CDT [...] Description 11/26/2024 11:40 AM CDT Ancillary Procedure [facility] [address] [place] [address] Health Maintenance Due Date Last Done Comments Fecal testing sDNA-FIT ([place] guard) for age 45-75 2015 Pneumococcal series [...] 10/11/2024 2:24 PM CDT Annual physical exam JOURNEYMAN PATTERNMAKER THIN PREP PAP SCREEN IMAGED Routine 10/11/2024 2:04 PM CDT Pap smear for cervical cancer screening HPV HIGH RISK Routine 10/11/2024 2:04 PM CDT Pap smear for cervical cancer screening BASIC METABOLIC PANEL Routine 08/22/2024 3:14 PM ORGAN TUNER Medication management TSH WITH REFLEX Routine 08/22/2024 3:14 PM ORGAN TUNER Hypothyroidism (acquired) XR MAMMO ANN UNI ADDL [...] LDL-C. Hipolito GRIDER et al. MIKIE. 2013;310(19): 5637-3645 (http://education.[employer] [place]/faq/TDW495) CHOL/HDLC RATIO 3.7 <5.0 (calc) [facility] [...] us Flower Joséronak DO CHEMISTRY Final Result [facility] [address] [place] [address], [facility] [address] [place] [address] * (ABNORMAL) BASIC METABOLIC PANEL (10/11/2024 2:24 PM CDT) Only the most recent of2 resultswithin the time period is included. [facility] GLUCOSE 91 65 - 99 mg/dL [facility] Comment: Fasting reference interval UREA [...] us Flower Yepez DO CHEMISTRY Final Result [facility] [address] [place] [address], [facility] [address] [place] [address] * JOURNEYMAN PATTERNMAKER THIN PREP PAP SCREEN IMAGED (10/11/2024 2:04 PM CDT) Case Report Gynecologic Cytology Report Case: [id number] Authorizing Provider: Flower Yepez DO Collected: 10/11/2024 1404 Ordering Location: [facility] Received: 10/11/2024 1404 Clinic First Screen: Maikel Gallego Rescreen: Judith Pittman Specimen: JOURNEYMAN PATTERNMAKER ThinPrep Vial Screening, Cervical 10/30/2024 1:27 PM CDT [facility] INTERPRETATION/ RESULT NEGATIVE FOR INTRAEPITHELIAL LESION OR MALIGNANCY (NIL) (none) 10/30/2024 1:27 PM CDT [facility] [employer] ENTRAL LABORATORY at 1327 CDT SPECIMEN ADEQUACY Satisfactory for evaluation No endocervical component seen 10/30/2024 1:27 PM CDT [facility] HPV REQUEST HPV and PAP 10/30/2024 1:27 PM CDT [facility] Date of LMP unknown 10/30/2024 1:27 PM CDT [facility] Last Pap Date 02/09/21 10/30/2024 1:27 PM CDT [facility] ENTRAL LABORATORY Last Pap Result NIL 1:27 PM CDT [facility] Abnormal Pap or [place] Bx in last 5 years No 10/30/2024 1:27 PM CDT [facility] Menstrual Status Postmenopausal 10/30/2024 1:27 PM CDT [facility] [place] Bx Done Today No 10/30/2024 1:27 PM CDT [facility] Additional Information None given 10/30/2024 1:27 PM CDT [facility] Comment: Cytology is screened at [facility] - [address], [place] [address] and [facility] - [address], [place] [address] and [facility] - [address] [place] [address] [facility] - [address], [place] [address] Automated Review Successful 10/30/2024 1:[address] [facility] Comment:Specimen processed s uccessfully by automated local government legislator device, Th[employer] Imaging System, [employer] ANCILLARY TESTING JOURNEYMAN PATTERNMAKER HPV Ordered, Please see separate report 10/30/2024 1:27 PM CDT [facility] Note The pap test is a [...] and malignant lesions. 10/30/2024 1:27 PM CDT [facility] Other (Cervical) Non-Blood / Unknown 10/11/2024 2:04 PM CDT 10/11/2024 2:04 PM CDT us Toshiai Lucho DO PATHOLOGY/CYTOLOGY Final Result [facility] [address] [place] [address], [place] * HPV HIGH RISK (10/11/2024 2:04 PM CDT) TYPE 16 Negative Negative 10/16/2024 3:20 PM CDT [facility] TRAL LABORATORY TYPE 18 Negative Negative 10/16/2024 3:20 PM CDT [facility] TRAL LABORATORY OTHER HIGH RISK TYPES Negative Negative 10/16/2024 3:20 PM CDT [facility] TRA LABORATORY Other (Cervical) Non-Blood / Unknown 10/11/2024 2:04 PM CDT 10/14/2024 10:27 AM CDT Narrative [facility] - 10/16/2024 3:20 PM CDT HPV types 16, 18, 31, 33, 35, 39, 45, 51, 52, 56, 58, 59, 66 and 68 DNA were undetectable or below the pre-set threshold. Methodology: Darrin Valdo 4800 HPV Test Toshia Lucho DO MICROBIOLOGY Final Result [facility] [address] [place] [address], * TSH WITH REFLEX (08/22/2024 3:14 PM ORGAN TUNER) TSH W/REFLEX TO FT4 1.55 mIU/L [facility] Comment: Reference Range > or = 20 Years 0.40-4.50 Ranges First trimester 0.26-2.66 Second trimester 0.55-2.73 Third trimester 0.43-2.91 Blood BLOOD SPECIMEN / Unknown 08/22/2024 3:14 PM ORGAN TUNER 08/22/2024 3:14 PM ORGAN TUNER Flower Yepez DO CHEMISTRY Final Result [facility] [address] [place] [address], [facility] [address] [place] [address] * XR MAMMO ANN UNI ADDL VIEWS [...] ve Non-Reacti ve 03/11/2014 6:58 PM CDT [facility]AT[facility] Blood specimen (specimen) BLOOD SPECIMEN / Unknown Venipuncture / Unknown 03/11/2014 2:32 PM CDT 03/11/2014 2:33 PM CDT Narrative [facility] - 03/11/2014 6:58 PM CDT Antibodies to HCV not detected; does not exclude the possibility of exposure to HCV. us Iain Zamora MD SEND OUTS Final Resul t [facility] [address] [place] [address], * ANTI HIV 1/2 (03/11/2014 2:32 PM CDT) HIV-1/HIV-2 ANTIBODY Non-Reacti ve Non-Reacti ve 03/11/2014 7:01 PM CDT [facility] TRAL LABORATORY Blood specimen (specimen) BLOOD SPECIMEN / Unknown Venipuncture / Unknown 03/11/2014 2:32 PM CDT 03/11/2014 2:33 PM CDT Narrative [facility] - 03/11/2014 7:01 PM CDT HIV-1 p24 and HIV-1/HIV-2 Ab not detected us Iain Zamora MD SEND OUTS Final Resul t Performing Organization Address City/[facility]/ZIP Co de Phone Number [facility] [address] [place] [address], from Last 3 Months or Most Recently Relevant to Health Maintenance Insurance [facility] [address] [address] [employer] Care Teams Nail Assembly Machine Operator Relationship Specialty Start Date End Date Flower Yepez DO [address] [place] [address] PCP - General Family Practice 01/31/23 Paulette Mcdonough DO Family Practice Family Practice 10/26/11 Iain Zamora MD [address] [facility] [address] [place] [address] Rheumatology Rheumatology 03/11/14
== END 2024-11-08 17:16 | disposition home or self-care (01) ==
PROVIDERS: Emergency Provider Emergency Medicine Emergency Medical Services; PCP Urology
DX: R20.8 Other disturbances of skin sensation (principal); T49.0X5A Adverse effect of local antifungal, anti-infective and anti-inflammatory drugs, initial encounter
CPT/HCPCS: 99283; 99284